=== PATIENT | male | born 1955 | race Caucasian/White ===

== ENCOUNTER 2019-09-25 18:11 | Emergency (ER) | payer OTHER ==
[~2019-09-25] VITALS: Ht 198.1 cm; Wt 124.7 kg
--- NOTE | 2019-09-25 18:11 | NUR ---
PT TRANSFERRED TO BED 8 BY EMS.
[2019-09-25 18:15] VITALS: BP 113/66
--- NOTE | 2019-09-25 18:49 | NUR ---
63 Y/M BIBA FROM [facility] WITH C/O RUQ AB PAIN 6/10 "CRAMP" PAIN X 2 DAY, LOSS OF APPETITE, PT REPORTS CONSTIPATION, LAST BM X 2 DAYS AGO. PT A&O X 4, ABDOMEN RIGID, LARGE, AND ROUND. SKIN WARM AND DRY TO TOUCH. PT DENIES FEVER, CP, OR DIARRHEA. PMH- HTN, HIGH CHOLSTEROL, ARTHRITIS, KIDNEY DIEASE, GANGRENE TO B FEET, SCROTAL EDEMA, HF, ALLERGIES- PENICILLIN, AMPICILLIN
--- NOTE | 2019-09-25 19:12 | NUR ---
TRANSFER OF CARE TO PRAVEEN SAAVEDRA
[2019-09-25] MEDS ORDERED: NACL 0.9% 500 ML IV SCH (19:15)
[2019-09-25 20:03] LABS: BASOPHILS % (AUTO) 0.4 % (0.0-2.0); EOSINOPHILS # (AUTO) 0.1 K/uL (0-0.4); EOSINOPHILS % (AUTO) 0.7 % (0.0-4.0); HEMATOCRIT 48.5 % (36-52); HEMOGLOBIN 15.3 g/dL (12.0-18.0); LYMPHOCYTES # (AUTO) 0.6 K/uL (2.0-11.5); LYMPHOCYTES % (AUTO) 6.8 % (20.5-51.1); MEAN CORPUSCULAR HEMOGLOBIN 27 pg (27-31); MEAN CORPUSCULAR HGB CONC 32 g/dL (33-37); MONOCYTES # (AUTO) 0.5 K/uL (0.8-1.0); MONOCYTES % (AUTO) 5.8 % (1.7-9.3); NEUTROPHILS # (AUTO) 7.8 K/uL (1.8-7.7); NEUTROPHILS % (AUTO) 86.3 % (42.2-75.2); PLATELET COUNT (AUTO) 196 K/uL (140-450); RED BLOOD CELL COUNT(AUTO) 5.58 MIL/uL (4.20-6.10); RED CELL DISTRIBUTION WIDTH 17.2 % (11.6-13.7)
[2019-09-25 20:25] LABS: ALBUMIN 2.8 g/dL (3.4-5.0); ANION GAP 13.3 (8-16); CARBON DIOXIDE 28.6 mmol/L (21-32); CREATININE 1.1 mg/dL (0.6-1.3); POTASSIUM 5.9 mmol/L (3.5-5.1); TOTAL BILIRUBIN 1.1 mg/dL (0.0-1.0)
[2019-09-25 20:47] LABS: APPEARANCE,URINE CLEAR (CLEAR); BILIRUBIN,URINE NEGATIVE (NEGATIVE); BLOOD, URINE NEGATIVE (NEGATIVE); COLOR,URINE ORANGE (YELLOW); LEUKOCYTE ESTERASE ,URINE NEGATIVE (NEGATIVE); NITRITE, URINE NEGATIVE (NEGATIVE); UGLUCOSE NEGATIVE (NEGATIVE)
[2019-09-25 21:19] LABS: PROTHROMBIN TIME 10.2 secs (10.8-13.4)
--- NOTE | 2019-09-25 21:24 | NUR ---
PATIENT SEMI FOWLERS IN BED. VSS ON MONITOR.
[2019-09-25] MEDS ORDERED: KETOROLAC 30 MG/ML VIAL IVP ONE (22:05)
[2019-09-25] MEDS ORDERED: SODIUM ZIRCONIUM CYCLOSILICATE 10 GM POWD.PACK PO ONE (22:05)
--- NOTE | 2019-09-25 22:48 | NUR ---
PATIENT GIVEN BLANKET. VSS ON MONITOR. INFORMED WE AWAITING TRANSPORT.
[2019-09-26 00:45] VITALS: BP 137/94
--- NOTE | 2019-09-26 00:47 | NUR ---
Patient discharged with v/s stable. Written and verbal after care instructions given and explained. Patient verbalized understanding. [facility] took patient in [facility]. All questions addressed prior to discharge. Advised to follow up with PMD.
== END 2019-09-26 00:45 ==
LOC: MED 18:11
DX: R10.11 Right upper quadrant pain (principal); R74.0 Nonspecific elevation of levels of transaminase and lactic acid dehydrogenase [LDH]; R11.10 Vomiting, unspecified; E11.9 Type 2 diabetes mellitus without complications; I10 Essential (primary) hypertension; Z88.0 Allergy status to penicillin; Z88.1 Allergy status to other antibiotic agents; Z98.890 Other specified postprocedural states
CPT/HCPCS: 36415; 71045; 74176; 80053; 81003; 83605; 83880; 84484; 85025; 85610; 85730; 87040; 87086; 87186; 93005; 96361; 96374; 99285; J1885; J7030; Q0092

== ENCOUNTER 2020-01-27 09:59 | Emergency (ER) | payer OTHER ==
[~2020-01-27] VITALS: Ht 188 cm; Wt 118.8 kg
[2020-01-27 10:09] VITALS: BP 122/75
--- NOTE | 2020-01-27 10:25 | NUR ---
ANDRÉS from [facility] with c/o groin pain & ALOC. pt is A&O x4, pt states he has a hernia in his left groin that he has had for many years and it causes intermittent pain, 8/10 at this time. Pt states the hernia is usually always reducible. Upon assessment, pt scrotum is swollen, no pain to touch, mild discomfort to palpation. No hernia-like presentation identified be myself. Pt showed me where they typically reduce the hernia and stated "I dont feel it right now". Pt denies ALOC and is able to answer all questions appropriately and communicate his needs. Pt states he has some pain to both feet, but primarily on the right foot and states it is due to "bad circulation" DENIES N/V/D/FEVER. PT HAS BEEN TESTED FOR COVID TWICE AND BOTH WERE NEGATIVE. (12/26/2019 &01/23/2020) VSS. Bed in low position, side rail up x2 for pt jaiteeris. 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
[2020-01-27 10:33] LABS: BASOPHILS % (AUTO) 0.3 % (0.0-2.0); EOSINOPHILS # (AUTO) 0.2 K/uL (0-0.4); EOSINOPHILS % (AUTO) 2.1 % (0.0-4.0); HEMATOCRIT 44.2 % (36-52); HEMOGLOBIN 14.3 g/dL (12.0-18.0); LYMPHOCYTES # (AUTO) 1.2 K/uL (2.0-11.5); LYMPHOCYTES % (AUTO) 13.7 % (20.5-51.1); MEAN CORPUSCULAR HEMOGLOBIN 28 pg (27-31); MEAN CORPUSCULAR HGB CONC 32 g/dL (33-37); MEAN CORPUSCULAR VOLUME 86.4 fL (80-94); MONOCYTES # (AUTO) 0.7 K/uL (0.8-1.0); MONOCYTES % (AUTO) 7.6 % (1.7-9.3); NEUTROPHILS # (AUTO) 6.8 K/uL (1.8-7.7); NEUTROPHILS % (AUTO) 76.3 % (42.2-75.2); PLATELET COUNT (AUTO) 180 K/uL (140-450); RED BLOOD CELL COUNT(AUTO) 5.12 MIL/uL (4.20-6.10); RED CELL DISTRIBUTION WIDTH 17.4 % (11.6-13.7); WHITE BLOOD COUNT (AUTO) 8.9 K/uL (4.8-10.8)
--- NOTE | 2020-01-27 10:35 | NUR ---
XRAY AT BEDSIDE
[2020-01-27] MEDS ORDERED: KETOROLAC 60 MG/2 ML VIAL IM ONE (10:40)
--- NOTE | 2020-01-27 10:40 | NUR ---
# 14 FR Urinary catheter inserted utilizing sterile technique. Immediate return of 250 ml yellow urine noted. Urine sample collected and sent to lab. Pt tolerated procedure well.
[2020-01-27 10:54] LABS: ANION GAP 9.3 (8-16); CARBON DIOXIDE 32.3 mmol/L (21-32); CREATININE 1.3 mg/dL (0.6-1.3); POTASSIUM 4.6 mmol/L (3.5-5.1); TOTAL BILIRUBIN 0.7 mg/dL (0.0-1.0)
--- NOTE | 2020-01-27 10:59 | NUR ---
Note undone in EDM - 01/27/20 at 1101 by [email or web address] BIBA from [facility] with c/o groin pain & ALOC. pt is A&O x4, pt states he has a hernia in his left groin that he has had for many years and it causes intermittent pain, 03/25 at this time. Pt states the hernia is usually always reducible. Upon assessment, pt scrotum is swollen, no pain to touch, mild discomfort to palpation. No hernia-like presentation identified be myself. Pt showed me where they typically reduce the hernia and stated "I dont feel it right now". Pt denies ALOC and is able to answer all questions appropriately and communicate his needs. Pt states he has some pain to both feet, but primarily on the right foot and states it is due to "bad circulation" DENIES N/V/D/FEVER. PT HAS BEEN TESTED FOR COVID TWICE AND BOTH WERE NEGATIVE. (12/26/2019 &01/23/2020) VSS. Bed in low position, side rail up x2 for pt osiris. 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
--- NOTE | 2020-01-27 11:15 | NUR ---
pt left to ct via [facility]
--- NOTE | 2020-01-27 12:00 | NUR ---
PT RIGHT AND LEFT FEET DRESSED WITH 4X4 GUAZE PADS AND WRAPPED WITH 3" GUAZE ROLLS X2.
--- NOTE | 2020-01-27 12:35 | NUR ---
Patient noted to have existing wounds upon arrival to ER. Wound covered with dressing. Physician informed.
--- NOTE | 2020-01-27 12:42 | NUR ---
gave report to PRAVEEN Vasquez at [facility] for pt return, informed her pt will be picked up by [facility] around 2-215pm
--- NOTE | 2020-01-27 13:28 | NUR ---
Patient discharged with v/s stable. Written and verbal after care instructions given and explained. Patient verbalized understanding. Ambulance Transport to long-term. All questions addressed prior to discharge. Advised to follow up with PMD.
[2020-01-27 13:45] VITALS: BP 127/84
== END 2020-01-27 13:45 ==
LOC: MED 09:59
DX: K40.90 Unilateral inguinal hernia, without obstruction or gangrene, not specified as recurrent (principal); R53.1 Weakness; J44.9 Chronic obstructive pulmonary disease, unspecified; I11.0 Hypertensive heart disease with heart failure; E11.9 Type 2 diabetes mellitus without complications; Z88.0 Allergy status to penicillin; Z88.2 Allergy status to sulfonamides
CPT/HCPCS: 36415; 71045; 74176; 80053; 81002; 84484; 85025; 93005; 96372; 99285; C1758; J1885; Q0092; 99283